=== PATIENT | female | born 1955 | race African-American/Black ===

== ENCOUNTER 2017-06-18 06:19 | Emergency (ER) | payer MEDICAID ==
[~2017-06-18] VITALS: Ht 170.2 cm; Wt 101.0 kg
[~2017-06-18 06:19] MED LIST: ALBUTEROL; CYCL5TAB PO; IBUP-1636 PO
[2017-06-18] MEDS ORDERED: METHYLPREDNISOLONE SOD SUCC 125 MG/2 ML VIAL IV STA (07:26)
[2017-06-18] MEDS ORDERED: MAGNESIUM 2 G PREMIX 50 ML IV ONE (07:30)
[2017-06-18] MEDS ORDERED: IPRATROPIUM/ALBUTEROL 0.5-3(2.5)MG/3ML NEB HHN ONE ×2 (07:30→10:00)
[2017-06-18 08:06] LABS: BASOPHILS % 0.5 % (0.0-2.0); EOSINOPHILS % 0.3 % (0.0-5.0); HEMATOCRIT. 40.2 % (36.0-48.0); HEMOGLOBIN. 13.6 g/dL (12.0-16.0); LYMPHOCYTES % 31.4 % (20.0-50.0); MEAN CORPUSCULAR HEMOGLOBIN 30.1 pg (28.0-32.0); MEAN CORPUSCULAR VOLUME 88.8 fL (81.0-99.0); MEAN PLATELET VOLUME 7.2 fl (7.4-10.4); MONOCYTES % 5.8 % (2.0-8.0); PLATELET 324 x1000/uL (130-400); RED BLOOD CELL COUNT 4.53 mill/uL (4.2-5.4); RED CELL DISTRIBUTION WIDTH 13.5 % (11.6-14.6)
[2017-06-18] MEDS ORDERED: KETOROLAC 30MG/ML VIAL IV ONE (08:15)
[2017-06-18 08:23] LABS: CARBON DIOXIDE 25 mEq/L (21-32); CHLORIDE 103 mEq/L (98-107); TROPONIN I < 0.02 ng/mL (0.00-0.04)
[2017-06-18 09:59] VITALS: BP 117/57
== END 2017-06-18 11:31 | disposition home or self-care (01) ==
LOC: ER 06:19
DX: R06.02 Shortness of breath (principal); R05 Cough; J45.909 Unspecified asthma, uncomplicated; E78.00 Pure hypercholesterolemia, unspecified; Z87.891 Personal history of nicotine dependence; Z88.0 Allergy status to penicillin; Z88.1 Allergy status to other antibiotic agents; Z98.51 Tubal ligation status; Z98.890 Other specified postprocedural states; Z88.2 Allergy status to sulfonamides
CPT/HCPCS: 36415; 71045; 80053; 83605; 83880; 84484; 85025; 87040; 87804; 93005; 94640; 96365; 96375; 99291; J1885; J2930; J3475; J7620

== ENCOUNTER 2017-08-02 06:02 | Emergency (ER) | payer MEDICAID ==
[~2017-08-02] VITALS: Ht 170.2 cm; Wt 98.0 kg
[2017-08-02] MEDS ORDERED: PREDNISONE 20MG TABLET PO STA (07:05)
[2017-08-02] MEDS ORDERED: ALBUTEROL (0.083%) 2.5MG/3ML NEB HHN STA (07:05)
[2017-08-02] MEDS ORDERED: IPRATROPIUM BROMIDE (0.02%) 0.5MG/2.5ML NEB HHN STA (07:05)
[2017-08-02] MEDS ORDERED: MORPHINE SULFATE 4 MG/ML CPJ (NOT FOR IM USE) IV STA (07:06)
[2017-08-02] MEDS ORDERED: CYCLOBENZAPRINE 10MG TABLET PO ONE (07:15)
[2017-08-02 07:26] LABS: BASOPHILS % 0.7 % (0.0-2.0); EOSINOPHILS % 5.3 % (0.0-5.0); HEMOGLOBIN. 13.1 g/dL (12.0-16.0); LYMPHOCYTES % 43.2 % (20.0-50.0); MEAN CORPUSCULAR HEMOGLOBIN 31.1 pg (28.0-32.0); MEAN CORPUSCULAR VOLUME 90.1 fL (81.0-99.0); MEAN PLATELET VOLUME 6.6 fl (7.4-10.4); MONOCYTES % 5.1 % (2.0-8.0); NEUTROPHILS % 45.7 % (40.0-76.0); PLATELET 447 x1000/uL (130-400); RED BLOOD CELL COUNT 4.22 mill/uL (4.2-5.4); RED CELL DISTRIBUTION WIDTH 14.1 % (11.6-14.6)
[2017-08-02 07:34] LABS: PROTHROMBIN TIME 10.2 sec (9.4-11.6)
[2017-08-02 07:38] LABS: CHLORIDE 108 mEq/L (98-107)
[2017-08-02] MEDS ORDERED: HYDROCODONE/ACETAMINOPHEN 10/325MG TABLET PO ONE (10:00)
[2017-08-02 11:29] VITALS: BP 150/92
== END 2017-08-02 11:42 | disposition home or self-care (01) ==
LOC: ER 06:02
DX: J45.901 Unspecified asthma with (acute) exacerbation (principal); M54.10 Radiculopathy, site unspecified; E78.00 Pure hypercholesterolemia, unspecified; D72.829 Elevated white blood cell count, unspecified; F17.210 Nicotine dependence, cigarettes, uncomplicated; Z71.6 Tobacco abuse counseling; Z98.51 Tubal ligation status; Z88.0 Allergy status to penicillin; Z88.3 Allergy status to other anti-infective agents
CPT/HCPCS: 36415; 80053; 85025; 85610; 94640; 96374; 99284; J2270; J7512; J7611; Z7610

== ENCOUNTER 2024-01-14 06:05 | Emergency (ER) | payer MEDICAID ==
[~2024-01-14] VITALS: Ht 170.2 cm; Wt 97.0 kg
[2024-01-14 06:14] VITALS: O2SAT 98
[2024-01-14] MEDS ORDERED: T3 PO (08:15)
[2024-01-14] MEDS ORDERED: IBUP-2028 PO (08:15)
[2024-01-14] MEDS: IBUPROFEN 400MG TABLET PO SCH (08:37)
[2024-01-14] MEDS: IBUPROFEN 400MG TABLET PO ONE (08:42)
[2024-01-14 09:25] VITALS: BP 131/78; PULSE 82; RESP 18; TEMP 37.00296; O2SAT 99
== END 2024-01-14 09:27 | disposition home or self-care (01) ==
LOC: ER 06:05
DX: S52.92XA Unspecified fracture of left forearm, initial encounter for closed fracture (principal); S62.606A Fracture of unspecified phalanx of right little finger, initial encounter for closed fracture; J45.909 Unspecified asthma, uncomplicated; E78.00 Pure hypercholesterolemia, unspecified; Z98.51 Tubal ligation status; Z88.0 Allergy status to penicillin; Z88.2 Allergy status to sulfonamides; W18.39XA Other fall on same level, initial encounter; Y93.89 Activity, other specified; Y92.89 Other specified places as the place of occurrence of the external cause; Y99.8 Other external cause status
CPT/HCPCS: 29105; 29130; 73090; 73120; 99284; A4565